=== PATIENT | female | born 2000 | race Caucasian/White ===

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

== ENCOUNTER 2022-10-04 13:08 | Emergency (ER) | payer OTHER, BC ==
[2022-10-04] MEDS ORDERED: Ibuprofen 600 MG Tab PO ONE (13:41)
[2022-10-04] MEDS ORDERED: Cyclobenzaprine 10 MG Tab PO ONE (13:41)
[2022-10-04 16:37] VITALS: BP 114/68; PULSE 75
== END 2022-10-04 14:50 | disposition home or self-care (01) ==
LOC: MW.ED 13:08
DX: M54.2 Cervicalgia (principal); R51.9 Headache, unspecified; V89.2XXA Person injured in unspecified motor-vehicle accident, traffic, initial encounter; Y92.410 Unspecified street and highway as the place of occurrence of the external cause
CPT/HCPCS: 70450; 72125; 81025; 99284; A9270; 99283